=== PATIENT | female | born 1995 | race Two or more races ===

== ENCOUNTER 2020-03-07 23:19 | Emergency (ER) | payer OTHER ==
[~2020-03-07] VITALS: Ht 165.1 cm; Wt 68.9 kg
[2020-03-07 23:22] VITALS: BP 133/90
--- NOTE | 2020-03-07 23:43 | NUR ---
Patient presents to ER c/o RUQ abd pain x2 hours. Patient also c/o constipation which she states she has had for years. Patient states there is blood when she wipes after she has a BM. Denies urinary symptoms. Patient is in NAD. Respirations even and unlabored.
[2020-03-08 00:04] LABS: BASOPHILS # (AUTO) 0.02 x10^3/uL (0-0.1); BASOPHILS % (AUTO) 0 % (0-1); EOSINOPHILS # (AUTO) 0.21 x10^3/uL (0-0.4); EOSINOPHILS % (AUTO) 3 % (1-7); LYMPHOCYTES # (AUTO) 2.87 x10^3/uL (1-3.4); LYMPHOCYTES % (AUTO) 42 % (22-44); MD NO; MEAN CORPUSCULAR HEMOGLOBIN 25.8 pg (27.0-34.8); MEAN CORPUSCULAR HGB CONC 32.5 g/dL (32.4-35.8); MEAN CORPUSCULAR VOLUME 79.6 fL (80-100); MEAN PLATELET VOLUME 8.3 fL (7.4-10.4); MONOCYTES # (AUTO) 0.59 x10^3/uL (0.2-0.8); MONOCYTES % (AUTO) 9 % (2-9); NEUTROPHILS # (AUTO) 3.12 x10^3/uL (1.8-6.8); NEUTROPHILS % (AUTO) 46 % (42-75); PLATELET COUNT 361 x10^3/uL (130-400); RED BLOOD COUNT 4.93 x10^6/uL (3.82-5.3); RED CELL DISTRIBUTION WIDTH 21.1 % (9.6-15.2)
[2020-03-08 00:12] LABS: ALANINE AMINOTRANSFERASE 34 U/L (12-78); ALBUMIN 3.6 g/dL (3.4-5.0); ANION GAP 9 mmol/L (5-15); CALCIUM 9.1 mg/dL (8.5-10.1); CHLORIDE 108 mmol/L (98-107); CREATININE 0.72 mg/dL (0.55-1.02)
[2020-03-08 00:14] LABS: ALKALINE PHOSPHATASE 78 U/L (45-117); BILIRUBIN,TOTAL 0.4 mg/dL (0.2-1.0); TOTAL PROTEIN 7.1 g/dL (6.4-8.2)
--- NOTE | 2020-03-08 01:24 | NUR ---
Discharge instructions given. All questions and concerns addressed. Patient ambulatory with a steady gait. Belongings with patient.
== END 2020-03-08 01:26 | disposition home or self-care (01) ==
LOC: ED 03-08 01:16
DX: R10.11 Right upper quadrant pain (principal); K64.4 Residual hemorrhoidal skin tags; K76.0 Fatty (change of) liver, not elsewhere classified; K62.89 Other specified diseases of anus and rectum; R11.2 Nausea with vomiting, unspecified
CPT/HCPCS: 36415; 76700; 80053; 83690; 85025; 99284

== ENCOUNTER 2020-06-09 17:11 | Emergency (ER) | payer OTHER ==
[~2020-06-09] VITALS: Ht 167.6 cm; Wt 73.2 kg
[2020-06-09 17:14] VITALS: BP 151/107
--- NOTE | 2020-06-09 17:57 | NUR ---
FURNITURE REPAIRER: PT WALKED BACK FROM LOBBY TO ROOM AT THIS TIME.
[2020-06-09] MEDS ORDERED: IBUPROFEN 600 MG TABLET ONE (18:25)
--- NOTE | 2020-06-09 18:26 | NUR ---
METER TESTER PER MAR.
[2020-06-09] MEDS ORDERED: IBUPROFEN 600 MG TABLET PO ONE (18:30)
== END 2020-06-09 18:39 | disposition home or self-care (01) ==
LOC: ED 18:07
DX: H66.002 Acute suppurative otitis media without spontaneous rupture of ear drum, left ear (principal); R51 Headache; R11.2 Nausea with vomiting, unspecified
CPT/HCPCS: 99283

== ENCOUNTER 2021-01-18 18:07 | Emergency (ER) | payer OTHER ==
[~2021-01-18] VITALS: Ht 167.6 cm; Wt 79.5 kg
[2021-01-18 18:08] VITALS: BP 141/100
[2021-01-18] MEDS ORDERED: IBUPROFEN 600 MG TABLET PO ONE (18:30)
[2021-01-18] MEDS ORDERED: IBUPROFEN 600 MG TABLET ONE (18:35)
--- NOTE | 2021-01-18 19:51 | NUR ---
Patient/Caregiver given discharge instructions and they have confirmed that they understand the instructions. Patient ambulatory with steady gait.
== END 2021-01-18 19:53 | disposition home or self-care (01) ==
LOC: ED 19:45
DX: M79.651 Pain in right thigh (principal)
CPT/HCPCS: 99283